=== PATIENT | female | born 1985 | race Caucasian/White ===

== ENCOUNTER → 2018-08-28 10:01 | Outpatient (CLI) | payer BC, SELFPAY ==
--- NOTE | 2018-08-28 | DI.US.S_ITS ---
PROCEDURE: US OB >= 14 WEEKS FETUS INDICATIONS: EVALUATION OUTSIDE/PRIOR DATING DATA: Last menstrual period (LMP): None. LMP-based estimated date of delivery (ROBERTO): Not applicable. First dating scan (date and location): Not available Estimated date of delivery (ORBERTO) from first dating scan: None available. TECHNIQUE: Real-time scanning was performed of the fetus, with image documentation and biometric measurements. Endovaginal scanning: Not performed COMPARISON: None. FINDINGS: General: A single living intrauterine gestation is present. Presentation: Variable Placenta: Placental position is anterior, without previa Amniotic fluid index: 15 cm, normal range is 5-24 cm. heart rate: 157 beats per minute. Maternal cervical canal: 5.3 cm long. Normal lower limit is 2.5 cm. biometrics: Biparietal diameter: 4.8 cm, 20 weeks 4 days Head circumference: 18.6 cm, 20 weeks 6 days Abdominal circumference: 16.5 cm, 21 weeks 4 days Femur length: 3.4 cm, 20 weeks 5 days Estimated gestational age from initial scan: 20 week 2 days. Composite gestational age from present scan: 21 weeks zero days Estimated weight and percentile: 401 g, 88% Measurement variability for biometric dating: +/- 7 days from 14 weeks to 15 weeks 6 days gestation, +/- 10 days from 16 weeks to 21 weeks 6 days gestation, +/- 2 weeks from 22 weeks to 27 weeks 6 days gestation, +/- 3 weeks for 28 weeks gestation or later. weight reference: 4500 g or EFW >90/95% is considered macrosomia or large for gestational age. EFW <10% is small for gestational age. EFW 5% or less is considered intra-uterine growth restriction. Anatomic survey: Neuro: Ventricles are non-dilated at less than 10 mm. Cisterna magna is normal at 3-11 mm. Cerebellum is normal in size and morphology. Nuchal skin fold: Normal at less than 6 mm between 14-21 weeks gestational age. Face: Not well-seen Spine: No evidence for spina bifida. Heart: 4-chambered heart is present, with normal ventricular outflow tracts. Diaphragm: Diaphragm is intact. Stomach: Left-sided stomach is present. Kidneys: No hydronephrosis. Normal is less than 5 mm in 2nd trimester, less than 7 mm in 3rd trimester. Cord: 3-vessel cord has orthotopic insertion. Bladder: Normal in size. Extremities: Right ankle is not well-seen. Left lower limb and bilateral upper limbs there is normal limits. IMPRESSION: 1. Single live intrauterine with fetus in variable presentation. heart rate is 157 beats per minute. Estimated gestational age based on current study is 21 weeks zero day. Estimated weight is 401 g, 88 percentile. 2. anatomic survey show no gross abnormality. face/lips/orbits and right ankle are not well seen on this study. Dictated by: Maxi Moran M.D. on 08/28/2018 at 12:18 Approved by: Maxi Moran M.D. on 08/28/2018 at 12:22
== END ==
PROVIDERS: Visit Provider Nurse Practitioner Obstetrics & Gynecology
DX: Z36.89 Encounter for other specified antenatal screening (principal); Z3A.21 21 weeks gestation of pregnancy
CPT/HCPCS: 76811